=== PATIENT | male | born 1955 | race Caucasian/White ===

== ENCOUNTER 2021-04-07 15:28 | Emergency (ER) | payer OTHER, MEDICARE ==
[2021-04-07] MEDS ORDERED: CYCLOBENZAPRINE10 MG PO (17:35)
[2021-04-07] MEDS ORDERED: MEDROL 4MG DOSEP4 MG PO (17:35)
[2021-04-07] MEDS ORDERED: BACLOFEN 10MG T10 MG PO (17:54)
== END 2021-04-07 17:57 | disposition home or self-care (01) ==
LOC: FER 15:28
DX: S13.4XXA Sprain of ligaments of cervical spine, initial encounter (principal); I25.2 Old myocardial infarction; Z79.82 Long term (current) use of aspirin; V49.40XA Driver injured in collision with unspecified motor vehicles in traffic accident, initial encounter; Y92.410 Unspecified street and highway as the place of occurrence of the external cause
CPT/HCPCS: 72040

== ENCOUNTER → 2021-12-21 | Day surgery (SDC) | payer OTHER, MEDICARE ==
[~2021-12-21] VITALS: Ht 165.1 cm; Wt 86.2 kg
[~2021-12-21] MED LIST: AMBIEN10 MG PO; ASCORBIC ACID500 MG PO; ASPIRIN EC81 MG PO; BACLOFEN 10MG T10 MG PO; CELEXA20 MG PO; CLONAZEPAM0.5 MG PO; CRESTOR40 MG PO; CYCLOBENZAPRINE10 MG PO; FOLIC ACID1 MG PO; ISOSORBIDE MONO60 MG PO; LOVAZA1 GM PO; MEDROL 4MG DOSEP4 MG PO; MELATONIN5 M2 PO; OS-CAL500 MG PO; PLAVIX75 MG PO; PROTONIX 40MG T40 MG PO; TOPROL XL 25MG25 MG PO; TRAZODONE HCL150 MG PO; VITAMIN D325 MC4 PO
== END | disposition home or self-care (01) ==
LOC: FAS 09:36
DX: Z12.11 Encounter for screening for malignant neoplasm of colon (principal); D12.4 Benign neoplasm of descending colon; D12.5 Benign neoplasm of sigmoid colon; I25.10 Atherosclerotic heart disease of native coronary artery without angina pectoris; E78.00 Pure hypercholesterolemia, unspecified; K21.9 Gastro-esophageal reflux disease without esophagitis; I25.2 Old myocardial infarction; I11.0 Hypertensive heart disease with heart failure; I50.9 Heart failure, unspecified; Z79.02 Long term (current) use of antithrombotics/antiplatelets; Z79.82 Long term (current) use of aspirin; Z88.6 Allergy status to analgesic agent; Z88.0 Allergy status to penicillin; Z88.8 Allergy status to other drugs, medicaments and biological substances; Z83.71 Family history of colonic polyps; Z95.1 Presence of aortocoronary bypass graft; Z98.61 Coronary angioplasty status; Z88.5 Allergy status to narcotic agent; Z72.89 Other problems related to lifestyle; Z87.891 Personal history of nicotine dependence
CPT/HCPCS: J2704; J7120

== ENCOUNTER 2022-02-13 20:46 | Emergency (ER) | payer OTHER, MEDICARE ==
[2022-02-13 21:20] LABS: BASOPHIL 0.3 % (0-2); EOSINOPHIL 1.9 % (0-7); HCT 38.6 % (42.0-52.0); HGB 13.4 g/dl (13.2-18.0); LYMPHOCYTE 22.5 % (15-48); MCH 30.7 pg (25.0-31.0); MCHC 34.7 g/dL (32.0-36.0); MCV 88.5 fL (78.0-100.0); MPV 9.8 fL (6.0-9.5); NEUTROPHIL 67.7 % (41-80); NRBC 0; PLT 189 K/uL (150-400); RBC 4.36 M/uL (4.70-6.00); RDW 13.5 % (11.5-14.0); WBC 9.6 K/uL (4.0-10.5)
[2022-02-13 21:44] LABS: ALBUMIN 3.4 g/dL (3.4-5.0); BILIRUBIN - TOTAL 0.6 mg/dL (0.2-1.0); BUN/CREAT RATIO (CALC) 19.7 RATIO; CREATININE 1.47 mg/dL (0.67-1.17); GLOBULIN (CALCULATION) 3.6 g/dL; POTASSIUM 3.9 mmol/L (3.5-5.1)
[2022-02-13 21:54] LABS: INR 0.95 (0.9-1.2); PROTHROMBIN TIME 12.1 SECONDS (11.8-13.4); PTT 26.7 SECONDS (24.4-34.7)
[2022-02-14] MEDS ORDERED: PREDNISONE 20MG20 MG PO (00:25)
[2022-02-14] MEDS ORDERED: VIBRAMYCIN100 MG PO (00:25)
[2022-02-14 01:16] LABS: CORONAVIRUS 2019 SARS-COV-2 NEGATIVE (NEGATIVE); INFLUENZA A NAA NEGATIVE (NEGATIVE)
== END 2022-02-14 00:50 | disposition home or self-care (01) ==
LOC: FER 20:46
PROVIDERS: Internal Medicine
DX: J44.9 Chronic obstructive pulmonary disease, unspecified (principal); B34.9 Viral infection, unspecified; R07.89 Other chest pain; I10 Essential (primary) hypertension; Z88.0 Allergy status to penicillin; Z88.5 Allergy status to narcotic agent; Z88.2 Allergy status to sulfonamides; Z20.822 Contact with and (suspected) exposure to COVID-19
CPT/HCPCS: 36415; 71045; 80053; 84484; 85025; 85610; 85730; 93005; U0002